=== PATIENT | male | born 1950 | race Caucasian/White ===

== ENCOUNTER 2020-12-02 07:26 | Day surgery (SDC) | payer MEDICARE ==
[~2020-12-02 07:26] MED LIST: Midazolam 1 MG/ML 2 ML SDV ONE; Propofol 200 MG/20 ML SDV ONE; fentaNYL 100 MCG/2 ML SDV ONE
[2020-12-02] MEDS ORDERED: Dextrose 5%-Lactated Ringers 1,000 ML IV SCH (08:00)
--- NOTE | 2020-12-06 16:26 | OR ---
DATE OF PROCEDURE: 12/02/2020 SURGEON: Shoaib Gregory MD PREOPERATIVE DIAGNOSIS: History of colon polyps. POSTOPERATIVE DIAGNOSIS: Normal colonoscopic examination with no recurrent polyps. OPERATIVE PROCEDURE: Flexible colonoscopy. ANESTHESIA: IV sedation. INDICATION FOR PROCEDURE: A 70-year-old presenting for followup colonoscopy. He does have a history of previous polyps. Plan is to proceed with a colonoscopy with polypectomy and/or biopsies as indicated. Potential risks including bleeding and perforation were discussed, and the patient wishes to proceed. DETAILS OF PROCEDURE: The patient was taken to the operating room and placed in a left lateral decubitus position. IV sedation was administered after which the initial digital rectal exam was performed and was unremarkable. The colonoscope was then able to be passed into the rectum with retroflexion revealing uncomplicated hemorrhoidal columns. The scope was eventually passed to the level of the cecum. The prep was quite good. There was no recurrent polyp formation or other signs of neoplasia. Likewise, no diverticular areas of colitis were seen. The scope was then withdrawn and the above findings reconfirmed. Again, the prep was quite good. Only a small amount of liquid stool was present. The patient was taken to the recovery room in satisfactory condition. Given the history of colon polyps, recommendation would be to repeat the colonoscopy in 5 years. Shoaib Gregory MD /[id number]
== END 2020-12-02 11:05 | disposition home or self-care (01) ==
LOC: JP.SDS 07:26
PROVIDERS: ATTEND Surgery
DX: Z12.11 Encounter for screening for malignant neoplasm of colon (principal); K64.9 Unspecified hemorrhoids; I10 Essential (primary) hypertension; F17.200 Nicotine dependence, unspecified, uncomplicated; Z86.010 Personal history of colon polyps
CPT/HCPCS: G0105; J2250; J2704; J3010; J7121

== ENCOUNTER 2022-10-25 20:54 | Emergency (ER) | payer MEDICARE ==
[2022-10-25] MEDS ORDERED: Sodium Chloride 0.9% 10 ML Syringe FLUSH PRN (21:03)
[2022-10-25] MEDS ORDERED: Sodium Chloride 0.9% 1,000 ML IV SCH ×2 (21:15→22:45)
[2022-10-25 21:36] LABS: TROPONIN I HIGH SENSITIVITY 10.3 pg/mL (<=60.3)
== END 2022-10-26 00:15 | disposition home or self-care (01) ==
LOC: JP.ED 20:54
DX: E86.0 Dehydration (principal); I10 Essential (primary) hypertension; I25.2 Old myocardial infarction; Z79.02 Long term (current) use of antithrombotics/antiplatelets; Z79.899 Other long term (current) drug therapy
CPT/HCPCS: 36415; 71046; 80048; 83880; 84484; 85025; 85610; 85730; 93005; 96360; 96361; 99285; J3490; J7030

== ENCOUNTER 2023-06-17 18:51 | Emergency (ER) | payer MEDICARE ==
[2023-06-17] MEDS ORDERED: Lactated Ringers 1,000 ML IV ONE (19:18)
[2023-06-17 19:29] LABS: BASOPHILS ABSOLUTE AUTO 0.02 K/uL (0.00-0.10); BASOPHILS PERCENT AUTO 0.4 % (0.1-1.3); EOSINOPHILS ABSOLUTE AUTO 0.27 K/uL (0.00-0.40); EOSINOPHILS PERCENT AUTO 5.6 % (0.0-5.4); HEMATOCRIT 36.8 % (38.4-49.7); HEMOGLOBIN 12.2 g/dL (12.9-16.9); IMMATURE GRAN ABSOLUTE AUTO 0.02 K/uL (0.00-0.23); IMMATURE GRAN PERCENT AUTO 0.4 % (0.0-0.7); LYMPHOCYTES ABSOLUTE AUTO 1.09 K/uL (0.8-3.3); LYMPHOCYTES PERCENT AUTO 22.8 % (11.4-47.7); MEAN CORPUSCULAR HEMOGLOBIN 31.8 pg (31.6-35.5); MEAN CORPUSCULAR HGB CONC 33.2 g/dL (31.6-35.5); MEAN CORPUSCULAR VOLUME 95.8 fL (81.4-99.0); MONOCYTES ABSOLUTE AUTO 0.33 K/uL (0.20-0.90); MONOCYTES PERCENT AUTO 6.9 % (3.3-12.6); NEUTROPHILS ABSOLUTE AUTO 3.06 K/uL (1.0-7.6); NEUTROPHILS PERCENT AUTO 63.9 % (40.0-78.1); PLATELET COUNT,PLT 142 K/uL (130-375); RED BLOOD CELL COUNT 3.84 M/uL (4.14-5.76); WHITE BLOOD CELL COUNT,WBC 4.8 K/uL (3.2-11.0)
[2023-06-17 19:53] LABS: ANION GAP 7.2 mmol/L (5.0-14.0); CREATININE 0.8 mg/dL (0.8-1.3); EST CRCL DRUG DOSING (CG) 75.74 mL/min; POTASSIUM,K 4.2 mmol/L (3.6-5.2)
== END 2023-06-17 20:45 | disposition home or self-care (01) ==
LOC: JP.ED 18:51
DX: R55 Syncope and collapse (principal); I10 Essential (primary) hypertension; I25.2 Old myocardial infarction; I25.10 Atherosclerotic heart disease of native coronary artery without angina pectoris; F17.210 Nicotine dependence, cigarettes, uncomplicated; Z79.82 Long term (current) use of aspirin; Z79.899 Other long term (current) drug therapy
CPT/HCPCS: 36415; 80048; 83605; 84484; 85025; 93005; 96360; 99284; J7120

== ENCOUNTER 2025-08-24 05:43 | Emergency (ER) | payer MEDICARE ==
[2025-08-24 06:32] LABS: CORONAVIRUS COVID-19 NAA NEGATIVE (NEGATIVE); INFLUENZA A NAA NEGATIVE (NEGATIVE); INFLUENZA B NAA NEGATIVE (NEGATIVE); RESPIRATORY SYNCYTIAL VIR NAA NEGATIVE (NEGATIVE)
== END 2025-08-24 08:09 | disposition home or self-care (01) ==
LOC: JP.ED 05:43
DX: Z04.3 Encounter for examination and observation following other accident (principal); R42 Dizziness and giddiness; I25.10 Atherosclerotic heart disease of native coronary artery without angina pectoris; I25.2 Old myocardial infarction; F17.200 Nicotine dependence, unspecified, uncomplicated; Z79.899 Other long term (current) drug therapy; Z79.82 Long term (current) use of aspirin; Z95.5 Presence of coronary angioplasty implant and graft
CPT/HCPCS: 87637; 99284